=== PATIENT | female | born 1955 | race Caucasian/White ===

== ENCOUNTER → 2017-02-16 | Outpatient (CLI) | payer OTHER | LOC: KOH-I 13:30 | DX: R10.13 Epigastric pain (principal); K59.00 Constipation, unspecified; Z86.010 Personal history of colon polyps | CPT/HCPCS: 74176 ==

== ENCOUNTER 2021-09-03 15:11 | Emergency (ER) | payer MEDICARE | END 2021-09-03 15:30 | disposition left against medical advice (07) | LOC: ER1 15:11 | DX: Z53.21 Procedure and treatment not carried out due to patient leaving prior to being seen by health care provider (principal) ==

== ENCOUNTER 2021-09-04 11:12 | Emergency (ER) | payer MEDICARE | END 2021-09-04 14:48 | disposition home or self-care (01) | LOC: ER1 11:12 | DX: U07.1 COVID-19 (principal); Z23 Encounter for immunization | CPT/HCPCS: 71045; 93005; 94760; 99283; M0243 ==